=== PATIENT | male | born 1945 | race Caucasian/White ===

== ENCOUNTER 2019-03-23 07:15 | Emergency (ER) | payer OTHER ==
[~2019-03-23] VITALS: Ht 170.1 cm; Wt 89.8 kg
[2019-03-23 08:08] LABS: BASO % 0.4 % (0.0-1.0); EOS # 0.1 10*3/uL (0.0-0.4); EOS % 1.3 % (1.0-4.0); HEMATOCRIT 44.5 % (42.0-52.0); HEMOGLOBIN 14.3 g/dl (14.0-18.0); LYMPH # 1.3 10*3/uL (1.3-4.4); LYMPH % 12.4 % (27.0-41.0); MEAN CELL VOLUME 91.4 fl (80.0-94.0); MEAN CORPUSCULAR HGB 29.4 pg (27.0-31.0); MEAN CORPUSCULAR HGB CONC 32.1 g/dl (33.0-37.0); MEAN PLATELET VOLUME 9.2 fl (9.6-12.3); MONO # 0.8 10*3/uL (0.1-1.0); MONO % 7.4 % (3.0-9.0); NEUT # 8.3 10*3/uL (2.3-7.9); NEUT % 78.1 % (47.0-73.0); PLATELET COUNT AUTOMATED 215 10*3/uL (130-400); RED BLOOD COUNT 4.87 10*6/uL (4.50-5.90); RED CELL DISTRI WIDTH 13.6 % (0-14.5); WHITE BLOOD COUNT 10.6 10*3/uL (4.8-10.8)
[2019-03-23 08:23] LABS: ALKALINE PHOSPHATASE 100 U/L (45-117); BUN 18 mg/dl (7-24); CHLORIDE 105 mmol/L (98-107); SGOT/AST 10 IU/L (3-35); SGPT/ALT 24 U/L (12-78); SODIUM 138 mmol/L (136-145); TOTAL PROTEIN 7.7 gm/dL (6.4-8.2); URIC ACID 6.7 mg/dL (3.5-7.2)
[2019-03-23 08:25] LABS: TROPONIN I < 0.015 ng/ml (<0.045)
[2019-03-23] MEDS ORDERED: PREDNISONE50 MG PO (09:50)
== END 2019-03-23 09:43 | disposition home or self-care (01) ==
LOC: ED 07:15
PROVIDERS: Emergency Medicine
DX: M65.841 Other synovitis and tenosynovitis, right hand (principal); Z88.0 Allergy status to penicillin; Z88.5 Allergy status to narcotic agent

== ENCOUNTER 2019-05-04 09:47 | Emergency (ER) | payer OTHER ==
[~2019-05-04] VITALS: Ht 170.1 cm; Wt 81.6 kg
[~2019-05-04 09:47] MED LIST: PREDNISONE50 MG PO
[2019-05-04 10:56] LABS: BASO # 0.1 10*3/uL (0.0-0.1); BASO % 0.4 % (0.0-1.0); EOS % 0.2 % (1.0-4.0); HEMATOCRIT 44.4 % (42.0-52.0); HEMOGLOBIN 14.8 g/dl (14.0-18.0); LYMPH # 1.3 10*3/uL (1.3-4.4); LYMPH % 10.5 % (27.0-41.0); MEAN CELL VOLUME 86.5 fl (80.0-94.0); MEAN CORPUSCULAR HGB 28.8 pg (27.0-31.0); MEAN CORPUSCULAR HGB CONC 33.3 g/dl (33.0-37.0); MEAN PLATELET VOLUME 9.4 fl (9.6-12.3); MONO % 8.5 % (3.0-9.0); NEUT # 9.5 10*3/uL (2.3-7.9); NEUT % 79.7 % (47.0-73.0); PLATELET COUNT AUTOMATED 348 10*3/uL (130-400); RED BLOOD COUNT 5.13 10*6/uL (4.50-5.90)
[2019-05-04 11:06] LABS: ALBUMIN 3.7 gm/dl (3.1-4.5); CREATININE 1.87 mg/dL (0.70-1.30); TOTAL PROTEIN 8.2 gm/dL (6.4-8.2)
[2019-05-04 11:09] LABS: POTASSIUM 3.6 mmol/L (3.5-5.1)
[2019-05-04 11:24] LABS: BILIRUBIN NEGATIVE (NEGATIVE); BLOOD NEGATIVE (NEGATIVE); CLARITY SL CLOUDY (CLEAR); COLOR YELLOW (YELLOW); GLUCOSE NEGATIVE (NEGATIVE); KETONE 2+ (NEGATIVE); LEUKO ESTERASE NEGATIVE (NEGATIVE); NITRITE NEGATIVE (NEGATIVE); UROBILINOGEN 0.2 E.U./dl (0.2-1.0)
[2019-05-04 11:34] LABS: BACTERIA 3+; HYALINE CAST 31-40; MUCOUS 3+; WBC 0-2 wbc/hpf (0-5)
== END 2019-05-04 13:16 | disposition home or self-care (01) ==
LOC: ED 09:47
PROVIDERS: Emergency Medicine
DX: E86.0 Dehydration (principal); R26.81 Unsteadiness on feet; R13.10 Dysphagia, unspecified; E11.9 Type 2 diabetes mellitus without complications; Z88.0 Allergy status to penicillin; Z88.5 Allergy status to narcotic agent; Z79.899 Other long term (current) drug therapy; Z87.891 Personal history of nicotine dependence

== ENCOUNTER 2020-04-02 11:12 | Inpatient (IN) | payer OTHER ==
[2020-04-02] VITALS (10 sets, daily range): BP systolic 126–162; BP diastolic 58–86
[~2020-04-02] VITALS: Ht 173 cm; Wt 66.9 kg
[2020-04-02 11:50] LABS: MEAN CORPUSCULAR HGB 27.9 pg (27.0-31.0); MEAN CORPUSCULAR HGB CONC 32.1 g/dl (33.0-37.0); MEAN PLATELET VOLUME 8.5 fl (9.6-12.3); PLATELET COUNT AUTOMATED 253 10*3/uL (130-400); RED BLOOD COUNT 4.94 10*6/uL (4.50-5.90); RED CELL DISTRI WIDTH 16.1 % (0-14.5); WHITE BLOOD COUNT 10.2 10*3/uL (4.8-10.8)
[2020-04-02 12:02] LABS: ACT PARTIAL THROMBO TIME 27.2 SECONDS (20.0-32.1)
[2020-04-02 12:12] LABS: TOTAL CELLS COUNTED 100 #CELLS
[2020-04-02 12:13] LABS: ALBUMIN 2.7 gm/dl (3.1-4.5); ALKALINE PHOSPHATASE 136 U/L (45-117); BUN 17 mg/dl (7-24); CHLORIDE 98 mmol/L (98-107); CREATININE 1.11 mg/dL (0.70-1.30); LIPASE 143 U/L (73-393); PLATELET SUFFICIENCY NORMAL (NORMAL); POLYCHROMASIA SLIGHT; POTASSIUM 3.2 mmol/L (3.5-5.1); SGOT/AST 35 IU/L (3-35); SGPT/ALT 47 U/L (12-78); SODIUM 134 mmol/L (136-145); TOTAL PROTEIN 7.4 gm/dL (6.4-8.2)
[2020-04-02 12:16] LABS: TROPONIN I < 0.015 ng/ml (<0.045)
[2020-04-02 18:03] LABS: ABG BASE EXCESS 0.2 mmol/L (-2.0-2.0); ARTERIAL BLOOD GAS PH 7.458 (7.35-7.45)
[2020-04-02 20:35] LABS: BILIRUBIN Negative (Negative); BLOOD Negative (Negative); CLARITY Clear (Clear); COLOR Yellow (Yellow); GLUCOSE Negative (Negative); KETONE Trace (Negative); LEUKO ESTERASE Negative (Negative); NITRITE Negative (Negative); SPECIFIC GRAVITY >= 1.030 (1.001-1.030)
[2020-04-02 20:42] LABS: BACTERIA TRACE; EPITHELIAL CELLS 0-2; RBC 0-2 rbc/hpf (0-2); WBC 0-2 wbc/hpf (0-5)
[2020-04-02 23:00] LABS: ARTERIAL BLOOD GAS PH 7.466 (7.35-7.45)
[2020-04-03 01:15] VITALS: BP 135/74
[2020-04-03 04:00] VITALS: BP 146/78
[2020-04-03 06:22] LABS: HEMATOCRIT 41.6 % (42.0-52.0); MEAN CELL VOLUME 88.9 fl (80.0-94.0); MEAN CORPUSCULAR HGB 27.6 pg (27.0-31.0); MEAN PLATELET VOLUME 8.6 fl (9.6-12.3); PLATELET COUNT AUTOMATED 260 10*3/uL (130-400); RED BLOOD COUNT 4.68 10*6/uL (4.50-5.90); RED CELL DISTRI WIDTH 15.9 % (0-14.5)
[2020-04-03 06:52] LABS: ALBUMIN 2.5 gm/dl (3.1-4.5); BUN 22 mg/dl (7-24); CHLORIDE 105 mmol/L (98-107); CHOLESTEROL 138 mg/dL (<200); CREATININE 0.87 mg/dL (0.70-1.30); HDL CHOLESTEROL 62 mg/dl (40-60); LDL CHOLESTEROL 56 mg/dL (9-159); POTASSIUM 3.6 mmol/L (3.5-5.1); SGOT/AST 34 IU/L (3-35); SGPT/ALT 38 U/L (12-78); SODIUM 135 mmol/L (136-145); TOTAL PROTEIN 6.9 gm/dL (6.4-8.2); TRIGLYCERIDES 100 mg/dl (<150); VLDL CHOLESTEROL 20 mg/dL (6-40)
[2020-04-03 06:58] LABS: ALKALINE PHOSPHATASE 125 U/L (45-117); FREE T4 1.47 ng/dl (0.76-1.46); LDH 377 U/L (87-241); THYROID STIM HORMONE (HS) 0.674 uIU/ml (0.358-4.75)
[2020-04-03 07:06] LABS: ATYPICAL LYMPHS 1 % (0-0); TOTAL CELLS COUNTED 100 #CELLS
[2020-04-03 07:07] LABS: PLATELET SUFFICIENCY NORMAL (NORMAL)
[2020-04-03 07:56] LABS: ABG BASE EXCESS -3.6 mmol/L (-2.0-2.0); ARTERIAL BLOOD GAS PH 7.454 (7.35-7.45)
[2020-04-03 08:00] VITALS: BP 152/81
[2020-04-03 08:48] LABS: VITAMIN D, 25-HYDROXY 30.1 ng/mL (30-100)
[2020-04-03 09:26] LABS: FERRITIN 3495.9 ng/mL (22.0-322.0)
[2020-04-03 12:00] VITALS: BP 149/59
[2020-04-03] MEDS ORDERED: ALOGLIPTIN12.5 MG PO (14:34)
[2020-04-03] MEDS ORDERED: NATURE'S BLEND F1 MG PO (14:35)
[2020-04-03] MEDS ORDERED: LIPITOR40 MG PO (14:35)
[2020-04-03] MEDS ORDERED: GRALISE300 M1 PO (14:36)
[2020-04-03] MEDS ORDERED: ZESTORETIC 20-1 EACH PO (14:38)
[2020-04-03] MEDS ORDERED: BASAG SOL SC (14:40)
[2020-04-03] MEDS ORDERED: METHOTREXATE S2.5 MG PO (14:45)
[2020-04-03] MEDS ORDERED: PREDNISONE5 MG PO (14:46)
[2020-04-03 15:55] LABS: ABG BASE EXCESS -3.4 mmol/L (-2.0-2.0); ARTERIAL BLOOD GAS PH 7.464 (7.35-7.45)
[2020-04-03 16:00] VITALS: BP 150/65
[2020-04-03 20:00] VITALS: BP 154/80
[2020-04-04] VITALS: BP 156/82
[2020-04-04 04:00] VITALS: BP 169/76
[2020-04-04 06:07] LABS: ALBUMIN 2.5 gm/dl (3.1-4.5); ALKALINE PHOSPHATASE 125 U/L (45-117); BUN 30 mg/dl (7-24); CHLORIDE 107 mmol/L (98-107); CREATININE 0.88 mg/dL (0.70-1.30); LDH 408 U/L (87-241); POTASSIUM 3.8 mmol/L (3.5-5.1); SGOT/AST 34 IU/L (3-35); SGPT/ALT 40 U/L (12-78); SODIUM 137 mmol/L (136-145); TOTAL PROTEIN 6.4 gm/dL (6.4-8.2)
[2020-04-04 06:19] LABS: HEMATOCRIT 41.2 % (42.0-52.0); MEAN CELL VOLUME 90.4 fl (80.0-94.0); MEAN CORPUSCULAR HGB 27.9 pg (27.0-31.0); MEAN CORPUSCULAR HGB CONC 30.8 g/dl (33.0-37.0); MEAN PLATELET VOLUME 9.2 fl (9.6-12.3); PLATELET COUNT AUTOMATED 305 10*3/uL (130-400); RED BLOOD COUNT 4.56 10*6/uL (4.50-5.90); WHITE BLOOD COUNT 13.1 10*3/uL (4.8-10.8)
[2020-04-04 07:38] LABS: ATYPICAL LYMPHS 1 % (0-0); TOTAL CELLS COUNTED 100 #CELLS
[2020-04-04 07:39] LABS: BURR CELLS FEW; PLATELET SUFFICIENCY NORMAL (NORMAL); POLYCHROMASIA SLIGHT
[2020-04-04 08:00] VITALS: BP 131/34; BP 144/88
[2020-04-04 10:08] LABS: ABG BASE EXCESS -3.8 mmol/L (-2.0-2.0); ARTERIAL BLOOD GAS PH 7.442 (7.35-7.45)
[2020-04-04 12:00] VITALS: BP 145/71
[2020-04-04 16:00] VITALS: BP 114/56
[2020-04-04 20:00] VITALS: BP 126/65
[2020-04-05] VITALS: BP 142/66
[2020-04-05 06:24] LABS: HEMATOCRIT 40.8 % (42.0-52.0); MEAN CELL VOLUME 89.1 fl (80.0-94.0); MEAN CORPUSCULAR HGB 28.2 pg (27.0-31.0); MEAN CORPUSCULAR HGB CONC 31.6 g/dl (33.0-37.0); MEAN PLATELET VOLUME 8.6 fl (9.6-12.3); PLATELET COUNT AUTOMATED 358 10*3/uL (130-400); RED BLOOD COUNT 4.58 10*6/uL (4.50-5.90); RED CELL DISTRI WIDTH 16.3 % (0-14.5); WHITE BLOOD COUNT 15.5 10*3/uL (4.8-10.8)
[2020-04-05 07:21] LABS: ALBUMIN 2.6 gm/dl (3.1-4.5); ALKALINE PHOSPHATASE 128 U/L (45-117); BUN 35 mg/dl (7-24); CHLORIDE 106 mmol/L (98-107); CREATININE 0.92 mg/dL (0.70-1.30); LDH 390 U/L (87-241); POTASSIUM 3.7 mmol/L (3.5-5.1); SGOT/AST 34 IU/L (3-35); SGPT/ALT 51 U/L (12-78); SODIUM 138 mmol/L (136-145); TOTAL PROTEIN 6.5 gm/dL (6.4-8.2)
[2020-04-05 07:59] LABS: PLATELET SUFFICIENCY NORMAL (NORMAL); TOTAL CELLS COUNTED 100 #CELLS
[2020-04-05 08:00] VITALS: BP 137/64
[2020-04-05 12:00] VITALS: BP 124/58
[2020-04-05 13:20] LABS: ABG BASE EXCESS -1.8 mmol/L (-2.0-2.0); ARTERIAL BLOOD GAS PH 7.452 (7.35-7.45)
[2020-04-05 16:00] VITALS: BP 122/64
[2020-04-05 20:00] VITALS: BP 128/92
[2020-04-06] VITALS: BP 112/98
[2020-04-06 06:21] LABS: HEMATOCRIT 40.3 % (42.0-52.0); MEAN CELL VOLUME 89.6 fl (80.0-94.0); MEAN CORPUSCULAR HGB 27.8 pg (27.0-31.0); MEAN PLATELET VOLUME 9.2 fl (9.6-12.3); PLATELET COUNT AUTOMATED 340 10*3/uL (130-400); RED CELL DISTRI WIDTH 16.2 % (0-14.5)
[2020-04-06 06:38] LABS: ALBUMIN 2.5 gm/dl (3.1-4.5); BUN 35 mg/dl (7-24); CHLORIDE 104 mmol/L (98-107); LDH 297 U/L (87-241); POTASSIUM 3.4 mmol/L (3.5-5.1); SGOT/AST 29 IU/L (3-35); SGPT/ALT 48 U/L (12-78); SODIUM 139 mmol/L (136-145); TOTAL PROTEIN 5.9 gm/dL (6.4-8.2)
[2020-04-06 06:40] LABS: ALKALINE PHOSPHATASE 115 U/L (45-117); CPK 27 U/L (39-308)
[2020-04-06 07:03] LABS: PLATELET SUFFICIENCY NORMAL (NORMAL); TOTAL CELLS COUNTED 100 #CELLS
[2020-04-06 08:00] VITALS: BP 104/52
[2020-04-06 12:00] VITALS: BP 124/63
[2020-04-06 16:06] VITALS: BP 135/52
[2020-04-06 20:00] VITALS: BP 125/62
[2020-04-07] VITALS: BP 137/72
[2020-04-07 06:56] LABS: MEAN CELL VOLUME 91.1 fl (80.0-94.0); MEAN CORPUSCULAR HGB 27.8 pg (27.0-31.0); MEAN CORPUSCULAR HGB CONC 30.5 g/dl (33.0-37.0); MEAN PLATELET VOLUME 9.4 fl (9.6-12.3); PLATELET COUNT AUTOMATED 278 10*3/uL (130-400); RED BLOOD COUNT 4.72 10*6/uL (4.50-5.90); RED CELL DISTRI WIDTH 16.1 % (0-14.5); WHITE BLOOD COUNT 13.7 10*3/uL (4.8-10.8)
[2020-04-07 07:30] LABS: ALBUMIN 2.7 gm/dl (3.1-4.5); BUN 33 mg/dl (7-24); CHLORIDE 109 mmol/L (98-107); SODIUM 139 mmol/L (136-145)
[2020-04-07 07:34] LABS: ALKALINE PHOSPHATASE 127 U/L (45-117); CPK 32 U/L (39-308); CREATININE 0.79 mg/dL (0.70-1.30); LDH 382 U/L (87-241); SGOT/AST 38 IU/L (3-35); SGPT/ALT 58 U/L (12-78); TOTAL PROTEIN 5.9 gm/dL (6.4-8.2)
[2020-04-07 07:39] LABS: BURR CELLS FEW; PLATELET SUFFICIENCY NORMAL (NORMAL); TOTAL CELLS COUNTED 100 #CELLS
[2020-04-07 07:59] LABS: ABG BASE EXCESS -1.4 mmol/L (-2.0-2.0); ARTERIAL BLOOD GAS PH 7.433 (7.35-7.45)
[2020-04-07 08:00] VITALS: BP 100/54; BP 130/56
[2020-04-07 12:00] VITALS: BP 109/57
[2020-04-07 16:00] VITALS: BP 112/56
[2020-04-07 20:00] VITALS: BP 113/53
[2020-04-08] VITALS: BP 101/62
[2020-04-08 07:13] LABS: ALBUMIN 2.4 gm/dl (3.1-4.5); BUN 32 mg/dl (7-24); CHLORIDE 107 mmol/L (98-107); CREATININE 0.85 mg/dL (0.70-1.30); LDH 315 U/L (87-241); POTASSIUM 3.7 mmol/L (3.5-5.1); SGOT/AST 34 IU/L (3-35); SGPT/ALT 53 U/L (12-78); SODIUM 139 mmol/L (136-145); TOTAL PROTEIN 6.1 gm/dL (6.4-8.2)
[2020-04-08 07:14] LABS: ALKALINE PHOSPHATASE 117 U/L (45-117); CPK 53 U/L (39-308)
[2020-04-08 07:32] LABS: HEMATOCRIT 39.9 % (42.0-52.0); MEAN CELL VOLUME 89.1 fl (80.0-94.0); MEAN CORPUSCULAR HGB 27.9 pg (27.0-31.0); MEAN CORPUSCULAR HGB CONC 31.3 g/dl (33.0-37.0); MEAN PLATELET VOLUME 9.5 fl (9.6-12.3); PLATELET COUNT AUTOMATED 259 10*3/uL (130-400); RED BLOOD COUNT 4.48 10*6/uL (4.50-5.90); RED CELL DISTRI WIDTH 16.4 % (0-14.5); WHITE BLOOD COUNT 14.6 10*3/uL (4.8-10.8)
[2020-04-08 07:49] LABS: ARTERIAL BLOOD GAS PH 7.427 (7.35-7.45)
[2020-04-08 08:00] VITALS: BP 102/52
[2020-04-08 08:43] LABS: PLATELET SUFFICIENCY NORMAL (NORMAL); POLYCHROMASIA SLIGHT; TOTAL CELLS COUNTED 100 #CELLS
[2020-04-08 08:44] LABS: BURR CELLS FEW
[2020-04-08 12:00] VITALS: BP 112/60
[2020-04-08 16:00] VITALS: BP 118/52
[2020-04-08 20:00] VITALS: BP 110/55
[2020-04-09] VITALS: BP 106/31
[2020-04-09 06:22] LABS: HEMATOCRIT 36.7 % (42.0-52.0); MEAN CELL VOLUME 87.2 fl (80.0-94.0); MEAN CORPUSCULAR HGB 27.6 pg (27.0-31.0); MEAN CORPUSCULAR HGB CONC 31.6 g/dl (33.0-37.0); MEAN PLATELET VOLUME 9.9 fl (9.6-12.3); PLATELET COUNT AUTOMATED 251 10*3/uL (130-400); RED BLOOD COUNT 4.21 10*6/uL (4.50-5.90); RED CELL DISTRI WIDTH 16.2 % (0-14.5); WHITE BLOOD COUNT 14.8 10*3/uL (4.8-10.8)
[2020-04-09 06:35] LABS: ALBUMIN 2.1 gm/dl (3.1-4.5); BUN 37 mg/dl (7-24); CHLORIDE 104 mmol/L (98-107); SODIUM 134 mmol/L (136-145)
[2020-04-09 06:37] LABS: ALKALINE PHOSPHATASE 119 U/L (45-117); CREATININE 0.86 mg/dL (0.70-1.30); LDH 291 U/L (87-241); SGOT/AST 24 IU/L (3-35); SGPT/ALT 48 U/L (12-78); TOTAL PROTEIN 5.6 gm/dL (6.4-8.2)
[2020-04-09 06:40] LABS: CPK 98 U/L (39-308)
[2020-04-09 07:17] LABS: PLATELET SUFFICIENCY NORMAL (NORMAL); TOTAL CELLS COUNTED 100 #CELLS
[2020-04-09 08:00] VITALS: BP 118/60; BP 128/51
[2020-04-09 09:18] LABS: ABG BASE EXCESS 0.9 mmol/L (-2.0-2.0); ARTERIAL BLOOD GAS PH 7.472 (7.35-7.45)
[2020-04-09 12:00] VITALS: BP 137/52
[2020-04-09 16:00] VITALS: BP 121/55
[2020-04-09 20:00] VITALS: BP 131/62
[2020-04-10] VITALS: BP 121/89
[2020-04-10 07:25] LABS: MEAN CELL VOLUME 87.9 fl (80.0-94.0); MEAN CORPUSCULAR HGB 27.5 pg (27.0-31.0); MEAN CORPUSCULAR HGB CONC 31.3 g/dl (33.0-37.0); MEAN PLATELET VOLUME 9.6 fl (9.6-12.3); PLATELET COUNT AUTOMATED 270 10*3/uL (130-400); RED BLOOD COUNT 4.55 10*6/uL (4.50-5.90)
[2020-04-10 07:29] LABS: ALBUMIN 2.4 gm/dl (3.1-4.5); BUN 30 mg/dl (7-24); CHLORIDE 104 mmol/L (98-107); POTASSIUM 3.7 mmol/L (3.5-5.1); SODIUM 137 mmol/L (136-145)
[2020-04-10 07:35] LABS: ALKALINE PHOSPHATASE 139 U/L (45-117); CPK 83 U/L (39-308); CREATININE 0.78 mg/dL (0.70-1.30); LDH 317 U/L (87-241); SGOT/AST 26 IU/L (3-35); SGPT/ALT 50 U/L (12-78); TOTAL PROTEIN 6.4 gm/dL (6.4-8.2)
[2020-04-10 07:49] LABS: PLATELET SUFFICIENCY NORMAL (NORMAL); TOTAL CELLS COUNTED 100 #CELLS
[2020-04-10 08:00] VITALS: BP 112/59
[2020-04-10 08:27] LABS: ABG BASE EXCESS 1.6 mmol/L (-2.0-2.0); ARTERIAL BLOOD GAS PH 7.479 (7.35-7.45)
[2020-04-10 12:00] VITALS: BP 114/65
[2020-04-10 16:00] VITALS: BP 113/53
[2020-04-10 20:00] VITALS: BP 121/53
[2020-04-11] VITALS: BP 146/66
[2020-04-11 06:23] LABS: HEMATOCRIT 41.6 % (42.0-52.0); MEAN CELL VOLUME 88.3 fl (80.0-94.0); MEAN CORPUSCULAR HGB 27.8 pg (27.0-31.0); MEAN CORPUSCULAR HGB CONC 31.5 g/dl (33.0-37.0); MEAN PLATELET VOLUME 9.6 fl (9.6-12.3); PLATELET COUNT AUTOMATED 258 10*3/uL (130-400); RED BLOOD COUNT 4.71 10*6/uL (4.50-5.90); RED CELL DISTRI WIDTH 15.9 % (0-14.5); WHITE BLOOD COUNT 18.2 10*3/uL (4.8-10.8)
[2020-04-11 06:41] LABS: ALBUMIN 2.4 gm/dl (3.1-4.5); ALKALINE PHOSPHATASE 153 U/L (45-117); BUN 35 mg/dl (7-24); CHLORIDE 103 mmol/L (98-107); CPK 64 U/L (39-308); CREATININE 0.87 mg/dL (0.70-1.30); LDH 291 U/L (87-241); POTASSIUM 3.9 mmol/L (3.5-5.1); SGOT/AST 24 IU/L (3-35); SGPT/ALT 53 U/L (12-78); SODIUM 133 mmol/L (136-145); TOTAL PROTEIN 6.1 gm/dL (6.4-8.2)
[2020-04-11 07:37] LABS: ABG BASE EXCESS 0.4 mmol/L (-2.0-2.0); ARTERIAL BLOOD GAS PH 7.438 (7.35-7.45)
[2020-04-11 08:00] VITALS: BP 113/58
[2020-04-11 08:00] LABS: PLATELET SUFFICIENCY NORMAL (NORMAL); TOTAL CELLS COUNTED 100 #CELLS
[2020-04-11 12:00] VITALS: BP 118/50
[2020-04-11 16:00] VITALS: BP 130/59
[2020-04-11 20:00] VITALS: BP 145/70
[2020-04-11 22:18] LABS: ABG BASE EXCESS 0.4 mmol/L (-2.0-2.0); ARTERIAL BLOOD GAS PH 7.456 (7.35-7.45)
[2020-04-12] VITALS: BP 126/63
[2020-04-12 07:34] LABS: HEMATOCRIT 42.5 % (42.0-52.0); MEAN CELL VOLUME 89.3 fl (80.0-94.0); MEAN CORPUSCULAR HGB 27.5 pg (27.0-31.0); MEAN CORPUSCULAR HGB CONC 30.8 g/dl (33.0-37.0); PLATELET COUNT AUTOMATED 269 10*3/uL (130-400); RED BLOOD COUNT 4.76 10*6/uL (4.50-5.90); RED CELL DISTRI WIDTH 15.9 % (0-14.5); WHITE BLOOD COUNT 17.7 10*3/uL (4.8-10.8)
[2020-04-12 08:00] VITALS: BP 117/60
[2020-04-12 08:00] LABS: TOTAL CELLS COUNTED 100 #CELLS
[2020-04-12 08:01] LABS: BURR CELLS FEW; PLATELET SUFFICIENCY NORMAL (NORMAL); POLYCHROMASIA SLIGHT
[2020-04-12 08:09] LABS: ALBUMIN 2.4 gm/dl (3.1-4.5); ALKALINE PHOSPHATASE 140 U/L (45-117); BUN 36 mg/dl (7-24); CHLORIDE 100 mmol/L (98-107); CPK 55 U/L (39-308); CREATININE 1.03 mg/dL (0.70-1.30); LDH 315 U/L (87-241); SGOT/AST 23 IU/L (3-35); SGPT/ALT 54 U/L (12-78); SODIUM 135 mmol/L (136-145); TOTAL PROTEIN 6.3 gm/dL (6.4-8.2)
[2020-04-12 12:00] VITALS: BP 107/45
[2020-04-12 16:00] VITALS: BP 116/52
[2020-04-12 20:00] VITALS: BP 119/61
[2020-04-12 23:58] VITALS: BP 113/62
[2020-04-13 06:16] LABS: HEMATOCRIT 43.6 % (42.0-52.0); MEAN CELL VOLUME 86.5 fl (80.0-94.0); MEAN CORPUSCULAR HGB 27.2 pg (27.0-31.0); MEAN CORPUSCULAR HGB CONC 31.4 g/dl (33.0-37.0); MEAN PLATELET VOLUME 9.6 fl (9.6-12.3); PLATELET COUNT AUTOMATED 269 10*3/uL (130-400); RED BLOOD COUNT 5.04 10*6/uL (4.50-5.90); RED CELL DISTRI WIDTH 15.9 % (0-14.5); WHITE BLOOD COUNT 18.4 10*3/uL (4.8-10.8)
[2020-04-13 06:22] LABS: ALBUMIN 2.6 gm/dl (3.1-4.5); BUN 40 mg/dl (7-24); CHLORIDE 100 mmol/L (98-107); CPK 55 U/L (39-308); CREATININE 0.99 mg/dL (0.70-1.30); LDH 315 U/L (87-241); POTASSIUM 4.2 mmol/L (3.5-5.1); SGOT/AST 22 IU/L (3-35); SGPT/ALT 57 U/L (12-78); SODIUM 133 mmol/L (136-145); TOTAL PROTEIN 6.4 gm/dL (6.4-8.2)
[2020-04-13 06:23] LABS: ALKALINE PHOSPHATASE 135 U/L (45-117)
[2020-04-13 07:47] LABS: TOTAL CELLS COUNTED 100 #CELLS
[2020-04-13 07:48] LABS: BURR CELLS FEW; PLATELET SUFFICIENCY NORMAL (NORMAL)
[2020-04-13 08:00] VITALS: BP 100/61
[2020-04-13 20:00] VITALS: BP 99/52
[2020-04-14] VITALS: BP 98/53
[2020-04-14 07:00] LABS: HEMATOCRIT 41.9 % (42.0-52.0); MEAN CELL VOLUME 88.6 fl (80.0-94.0); MEAN CORPUSCULAR HGB 27.5 pg (27.0-31.0); MEAN PLATELET VOLUME 9.9 fl (9.6-12.3); PLATELET COUNT AUTOMATED 240 10*3/uL (130-400); RED BLOOD COUNT 4.73 10*6/uL (4.50-5.90); RED CELL DISTRI WIDTH 16.3 % (0-14.5); WHITE BLOOD COUNT 13.8 10*3/uL (4.8-10.8)
[2020-04-14 07:35] LABS: ALBUMIN 2.3 gm/dl (3.1-4.5); POTASSIUM 3.8 mmol/L (3.5-5.1)
[2020-04-14 07:37] LABS: CREATININE 1.45 mg/dL (0.70-1.30); TOTAL PROTEIN 5.9 gm/dL (6.4-8.2)
[2020-04-14 07:45] LABS: PLATELET SUFFICIENCY NORMAL (NORMAL); TOTAL CELLS COUNTED 100 #CELLS
[2020-04-14 08:00] VITALS: BP 90/56
[2020-04-14 12:00] VITALS: BP 90/43
[2020-04-14 16:00] VITALS: BP 85/45
[2020-04-14 20:00] VITALS: BP 96/48
[2020-04-15] VITALS: BP 115/49
[2020-04-15 06:25] LABS: HEMATOCRIT 35.9 % (42.0-52.0); MEAN CELL VOLUME 88.2 fl (80.0-94.0); MEAN CORPUSCULAR HGB 27.3 pg (27.0-31.0); MEAN CORPUSCULAR HGB CONC 30.9 g/dl (33.0-37.0); MEAN PLATELET VOLUME 9.3 fl (9.6-12.3); PLATELET COUNT AUTOMATED 195 10*3/uL (130-400); RED BLOOD COUNT 4.07 10*6/uL (4.50-5.90); RED CELL DISTRI WIDTH 16.1 % (0-14.5); WHITE BLOOD COUNT 14.6 10*3/uL (4.8-10.8)
[2020-04-15 06:32] LABS: CHLORIDE 108 mmol/L (98-107); CREATININE 1.05 mg/dL (0.70-1.30); POTASSIUM 4.1 mmol/L (3.5-5.1); SODIUM 138 mmol/L (136-145)
[2020-04-15 06:39] LABS: BUN 51 mg/dl (7-24)
[2020-04-15 08:00] VITALS: BP 108/50
[2020-04-15 08:04] LABS: BASOPHILS 1 % (0-1); PLATELET SUFFICIENCY NORMAL (NORMAL); TOTAL CELLS COUNTED 100 #CELLS
[2020-04-15 12:00] VITALS: BP 99/65
[2020-04-15 16:00] VITALS: BP 113/96
[2020-04-15 20:00] VITALS: BP 134/75
[2020-04-16] VITALS: BP 114/57
[2020-04-16 06:49] LABS: HEMATOCRIT 42.7 % (42.0-52.0); MEAN CELL VOLUME 90.3 fl (80.0-94.0); MEAN CORPUSCULAR HGB 27.9 pg (27.0-31.0); MEAN CORPUSCULAR HGB CONC 30.9 g/dl (33.0-37.0); MEAN PLATELET VOLUME 9.6 fl (9.6-12.3); PLATELET COUNT AUTOMATED 172 10*3/uL (130-400); RED BLOOD COUNT 4.73 10*6/uL (4.50-5.90); WHITE BLOOD COUNT 13.2 10*3/uL (4.8-10.8)
[2020-04-16 07:05] LABS: CHLORIDE 106 mmol/L (98-107); CREATININE 0.75 mg/dL (0.70-1.30); POTASSIUM 3.7 mmol/L (3.5-5.1); SODIUM 136 mmol/L (136-145)
[2020-04-16 07:10] LABS: BUN 23 mg/dl (7-24)
[2020-04-16 07:28] LABS: PLATELET SUFFICIENCY NORMAL (NORMAL); TOTAL CELLS COUNTED 100 #CELLS
[2020-04-16 08:00] VITALS: BP 118/69
[2020-04-16 11:58] VITALS: BP 105/55
[2020-04-16 16:00] VITALS: BP 142/69
[2020-04-16 20:00] VITALS: BP 121/58
[2020-04-17] VITALS: BP 123/88
[2020-04-17 06:14] LABS: BASO % 0.3 % (0.0-1.0); EOS # 0.1 10*3/uL (0.0-0.4); EOS % 1.1 % (1.0-4.0); LYMPH # 0.6 10*3/uL (1.3-4.4); LYMPH % 5.5 % (27.0-41.0); MEAN CELL VOLUME 87.3 fl (80.0-94.0); MEAN CORPUSCULAR HGB 28.1 pg (27.0-31.0); MEAN CORPUSCULAR HGB CONC 32.2 g/dl (33.0-37.0); MEAN PLATELET VOLUME 9.3 fl (9.6-12.3); MONO # 0.9 10*3/uL (0.1-1.0); MONO % 7.7 % (3.0-9.0); NEUT # 9.6 10*3/uL (2.3-7.9); NEUT % 83.2 % (47.0-73.0); PLATELET COUNT AUTOMATED 182 10*3/uL (130-400); RED BLOOD COUNT 4.24 10*6/uL (4.50-5.90); RED CELL DISTRI WIDTH 16.1 % (0-14.5); WHITE BLOOD COUNT 11.6 10*3/uL (4.8-10.8)
[2020-04-17 06:35] LABS: BUN 21 mg/dl (7-24); CHLORIDE 103 mmol/L (98-107); CREATININE 0.71 mg/dL (0.70-1.30); POTASSIUM 3.9 mmol/L (3.5-5.1); SODIUM 136 mmol/L (136-145)
[2020-04-17 08:00] VITALS: BP 121/62
[2020-04-17 12:00] VITALS: BP 122/71
[2020-04-17 16:00] VITALS: BP 115/55
[2020-04-17 20:00] VITALS: BP 111/55
[2020-04-18] VITALS: BP 120/61
[2020-04-18 08:00] VITALS: BP 113/59; BP 120/62
[2020-04-18 12:00] VITALS: BP 115/58
[2020-04-18 16:00] VITALS: BP 117/54
[2020-04-18 20:00] VITALS: BP 137/53
[2020-04-19] VITALS: BP 102/53
[2020-04-19 08:00] VITALS: BP 125/59
[2020-04-19 12:00] VITALS: BP 106/58
[2020-04-19 15:36] VITALS: BP 110/58
[2020-04-19 20:00] VITALS: BP 124/59
[2020-04-20] VITALS: BP 118/57
[2020-04-20 04:00] VITALS: BP 118/57
[2020-04-20 08:00] VITALS: BP 130/72
[2020-04-20 12:00] VITALS: BP 126/59
[2020-04-20 16:00] VITALS: BP 117/55
[2020-04-20 20:00] VITALS: BP 138/62
[2020-04-21] VITALS: BP 120/58
[2020-04-21 08:00] VITALS: BP 128/66
[2020-04-21 12:00] VITALS: BP 103/55
[2020-04-21 16:00] VITALS: BP 110/64
[2020-04-21 20:00] VITALS: BP 121/63
[2020-04-22] VITALS: BP 100/59
[2020-04-22 08:00] VITALS: BP 112/60
[2020-04-22 12:00] VITALS: BP 116/64
[2020-04-22] MEDS ORDERED: XARE15TA PO (14:57)
[2020-04-22] MEDS ORDERED: HYDROXYZINE HCL25 MG PO (14:57)
[2020-04-22] MEDS ORDERED: LOPRESSOR25 MG PO (14:57)
[2020-04-22 16:00] VITALS: BP 104/59
[2020-04-22 20:00] VITALS: BP 115/49
[2020-04-23] VITALS: BP 106/46
[2020-04-23 08:00] VITALS: BP 121/55
== END 2020-04-23 13:18 | disposition short-term general hospital (02) | DRG 951 ==
LOC: ED 11:12 → EDHOLD 17:33 → ICCU 17:33 → EDHOLD 17:44 → ICCU 22:56 → 4E 04-04 13:51
PROVIDERS: Emergency Medicine; Internal Medicine; Internal Medicine Critical Care Medicine; Student in an Organized Health Care Education/Training Program; ADMIT Family Medicine; ATTEND Family Medicine
PROC: 5A09357 Assistance with Respiratory Ventilation, Less than 24 Consecutive Hours, Continuous Positive Airway Pressure (ICD-10-PCS; 2020-04-02)
PROC: XW033E5 Introduction of Remdesivir Anti-infective into Peripheral Vein, Percutaneous Approach, New Technology Group 5 (ICD-10-PCS; principal; 2020-04-03)
PROC: 5A0935A Assistance with Respiratory Ventilation, Less than 24 Consecutive Hours, High Flow/Velocity Cannula (ICD-10-PCS; 2020-04-03)
PROC: 5A09357 Assistance with Respiratory Ventilation, Less than 24 Consecutive Hours, Continuous Positive Airway Pressure (ICD-10-PCS; 2020-04-04)
PROC: 5A0935A Assistance with Respiratory Ventilation, Less than 24 Consecutive Hours, High Flow/Velocity Cannula (ICD-10-PCS; 2020-04-04)
PROC: 5A0935A Assistance with Respiratory Ventilation, Less than 24 Consecutive Hours, High Flow/Velocity Cannula (ICD-10-PCS; 2020-04-05)
PROC: 5A09357 Assistance with Respiratory Ventilation, Less than 24 Consecutive Hours, Continuous Positive Airway Pressure (ICD-10-PCS; 2020-04-06)
PROC: 5A09457 Assistance with Respiratory Ventilation, 24-96 Consecutive Hours, Continuous Positive Airway Pressure (ICD-10-PCS; 2020-04-06)
PROC: 5A0935A Assistance with Respiratory Ventilation, Less than 24 Consecutive Hours, High Flow/Velocity Cannula (ICD-10-PCS; 2020-04-07)
PROC: 5A0935A Assistance with Respiratory Ventilation, Less than 24 Consecutive Hours, High Flow/Velocity Cannula (ICD-10-PCS; 2020-04-08)
PROC: 5A0935A Assistance with Respiratory Ventilation, Less than 24 Consecutive Hours, High Flow/Velocity Cannula (ICD-10-PCS; 2020-04-09)
PROC: 5A0935A Assistance with Respiratory Ventilation, Less than 24 Consecutive Hours, High Flow/Velocity Cannula (ICD-10-PCS; 2020-04-10)
PROC: 5A09457 Assistance with Respiratory Ventilation, 24-96 Consecutive Hours, Continuous Positive Airway Pressure (ICD-10-PCS; 2020-04-10)
PROC: 5A0935A Assistance with Respiratory Ventilation, Less than 24 Consecutive Hours, High Flow/Velocity Cannula (ICD-10-PCS; 2020-04-11)
PROC: 5A09457 Assistance with Respiratory Ventilation, 24-96 Consecutive Hours, Continuous Positive Airway Pressure (ICD-10-PCS; 2020-04-11)
PROC: 5A0935A Assistance with Respiratory Ventilation, Less than 24 Consecutive Hours, High Flow/Velocity Cannula (ICD-10-PCS; 2020-04-12)
PROC: 5A09457 Assistance with Respiratory Ventilation, 24-96 Consecutive Hours, Continuous Positive Airway Pressure (ICD-10-PCS; 2020-04-12)
DX: Z88.5 Allergy status to narcotic agent (principal); A41.9 Sepsis, unspecified organism; J96.01 Acute respiratory failure with hypoxia; U07.1 COVID-19; J12.82 Pneumonia due to coronavirus disease 2019; E43 Unspecified severe protein-calorie malnutrition; R65.20 Severe sepsis without septic shock; E87.1 Hypo-osmolality and hyponatremia; E87.2 Acidosis; E44.0 Moderate protein-calorie malnutrition; N17.9 Acute kidney failure, unspecified; D68.59 Other primary thrombophilia; E78.00 Pure hypercholesterolemia, unspecified; M06.9 Rheumatoid arthritis, unspecified; E87.5 Hyperkalemia; Z68.25 Body mass index [BMI] 25.0-25.9, adult; E87.6 Hypokalemia; E66.9 Obesity, unspecified; D64.9 Anemia, unspecified; E11.65 Type 2 diabetes mellitus with hyperglycemia; E80.6 Other disorders of bilirubin metabolism; I95.9 Hypotension, unspecified; Z87.891 Personal history of nicotine dependence; Z88.0 Allergy status to penicillin